=== PATIENT | male | born 1935 | race Hispanic/Latino ===

== ENCOUNTER 2017-09-28 13:42 | Inpatient (IN) | payer MEDICARE, OTHER ==
[~2017-09-28] VITALS: Ht 152.4 cm; Wt 65.8 kg
[2017-09-28] MEDS ORDERED: TAMSULOSIN HCL0.4 MG PO ×2 (14:07→14:16)
[2017-09-28] MEDS ORDERED: ISOSORBIDE MONO30 MG PO ×2 (14:07→14:16)
[2017-09-28] MEDS ORDERED: AMLODIPINE BESYL5 MG PO ×2 (14:07→14:16)
[2017-09-28] MEDS ORDERED: OMEPRAZOLE40 MG PO ×2 (14:07→14:16)
[2017-09-28] MEDS ORDERED: METOPROLOL SUCC50 MG PO ×2 (14:07→14:16)
[2017-09-28] MEDS ORDERED: ATORVASTATIN CA20 MG PO ×2 (14:07→14:16)
[2017-09-28] MEDS ORDERED: LASIX20 MG PO (14:07)
[2017-09-28] MEDS ORDERED: CEPHALEXIN500 MG PO (14:16)
[2017-09-28] MEDS ORDERED: FUROSEMIDE40 MG PO (14:16)
[2017-09-28 14:37] LABS: BILIRUBIN,URINE NEGATIVE (NEGATIVE); KETONES,URINE NEGATIVE (NEGATIVE); LEUKOCYTE ESTERASE ,URINE NEGATIVE (NEGATIVE); NITRITE,URINE NEGATIVE (NEGATIVE); PROTEIN,URINE DIPSTICK NEGATIVE (NEGATIVE); URINE UROBILINOGEN 0.2 mg/dL (0.2 - 1)
[2017-09-28 14:38] LABS: CLARITY,URINE CLEAR (CLEAR); COLOR,URINE YELLOW (YELLOW)
[2017-09-28 14:39] LABS: BASOPHILS % 0.5 % (0.0-1.0); EOSINOPHILS % 0.5 % (0.0-6.0); HEMATOCRIT 37.6 % (38.2-49.6); HEMOGLOBIN 11.7 g/dL (14.0-18.0); LYMPHOCYTES # (AUTO) 0.5 (1.0-3.2); LYMPHOCYTES % 8.5 % (18.0-39.1); MEAN CORPUSCULAR HEMOGLOBIN 27.5 pg (28-32); MEAN CORPUSCULAR HGB CONC 31.1 g/dL (31-35); MEAN CORPUSCULAR VOLUME 88.5 fL (81-99); MONOCYTES # (AUTO) 0.3 (0.2-0.8); MONOCYTES % 4.9 % (4.4-11.3); NEUTROPHILS # (AUTO) 5.2 (2.1-6.9); NEUTROPHILS % 84.8 % (38.7-80.0); PLATELET COUNT 148 x10e3/uL (140-360); RED BLOOD COUNT 4.25 x10e6/uL (4.3-5.7); RED CELL DISTRIBUTION WIDTH 17.6 % (11.7-14.4)
[2017-09-28 14:50] LABS: EPITHELIAL CELLS,URINE RARE /LPF
[2017-09-28 14:53] LABS: ALBUMIN 2.8 g/dL (3.5-5.0); ALBUMIN/GLOBULIN RATIO 0.7 (0.8-2.0); ANION GAP 13.5 mmol/L (8-16); CALCIUM 8.9 mg/dL (8.4-10.2); CREATININE, SERUM 2.46 mg/dL (0.72-1.25); MAGNESIUM 2.1 MG/DL (1.3-2.1); PHOSPHORUS 4.1 MG/DL (2.3-4.7); POTASSIUM 4.5 mmol/L (3.5-5.1)
[2017-09-28] MEDS ORDERED: SODIUM CHLORIDE 0.9% 1000ML 1,000 ML IV ONE (15:15)
--- NOTE | 2017-09-28 15:24 | Diagnostic Imaging Report ---
Examination: CT BRAIN WITHOUT CONTRAST History:New onset seizures. Comparison studies:None Technique: Axial images were obtained from the skull base to the vertex. Coronal and sagittal images reconstructed from the axial data. Intravenous contrast: None Findings: Scalp: No abnormalities. Bones: No fractures, blastic or lytic lesions. Brain sulci: Appropriate for age. Ventricles: Normal in size and configuration. No hydrocephalus. Extra-axial space: No abnormalities. Parenchyma: There are subtle patchy areas of hypoattenuation in the periventricular and subcortical white matter, nonspecific. Chronic lacunar infarcts of the right putamen and right striatocapsular region. No masses, hemorrhage, or acute cortical based vascular insults. Sellar/suprasellar region: No abnormalities. Craniocervical junction: Patent foramen magnum. No Chiari one malformation. Incidental findings: Atherosclerotic calcification of the cavernous and supraclinoid internal carotid and V4 segments of the bilateral vertebral arteries. Impression: 1. No acute intracranial abnormalities. 2. Mild chronic microvascular ischemic change. 3. Chronic lacunar infarcts, as above. Signed by: Dr. Lana Chamberlain M.D. on 09/28/2017 3:20 PM
[2017-09-28 15:57] LABS: THYROID STIMULATING HORMONE 103.88 uIU/mL (0.350-4.940)
[2017-09-28] MEDS ORDERED: SODIUM CHLORIDE FLUSH 10 ML SYR INJ PRN (17:00)
[2017-09-28] MEDS ORDERED: ONDANSETRON HCL INJ 2 MG/ML VIAL IV PRN (17:00)
[2017-09-28] MEDS ORDERED: LEVOTHYROXINE SODIUM 100 MCG/VIAL IV ONE (17:15)
[2017-09-28] MEDS: CEFTRIAXONE SOD 1 GM VIAL IV SCH (18:10)
[2017-09-28] MEDS ORDERED: DEXTROSE 5%/0.45% SOD CHL 1,000 ML IV ONE (20:15)
[2017-09-29] VITALS (15 sets, daily range): BP systolic 74–143; BP diastolic 45–76
[2017-09-29] MEDS ORDERED: DEXTROSE 5%/0.45% SOD CHL 1,000 ML IV ONE (05:12)
[2017-09-29 05:15] LABS: BASOPHILS % 0.4 % (0.0-1.0); EOSINOPHILS % 0.4 % (0.0-6.0); HEMATOCRIT 32.9 % (38.2-49.6); HEMOGLOBIN 10.4 g/dL (14.0-18.0); LYMPHOCYTES # (AUTO) 0.6 (1.0-3.2); LYMPHOCYTES % 11.7 % (18.0-39.1); MEAN CORPUSCULAR HEMOGLOBIN 27.5 pg (28-32); MEAN CORPUSCULAR HGB CONC 31.6 g/dL (31-35); MONOCYTES # (AUTO) 0.4 (0.2-0.8); MONOCYTES % 8.4 % (4.4-11.3); NEUTROPHILS # (AUTO) 3.8 (2.1-6.9); NEUTROPHILS % 78.3 % (38.7-80.0); PLATELET COUNT 137 x10e3/uL (140-360); RED BLOOD COUNT 3.78 x10e6/uL (4.3-5.7); RED CELL DISTRIBUTION WIDTH 17.6 % (11.7-14.4)
[2017-09-29] MEDS: DEXTROSE 5%/0.45% SOD CHL 1,000 ML IV SCH ×2 (05:15→15:58)
[2017-09-29 05:39] LABS: ALANINE AMINOTRANSFERASE 48 IU/L (0-55); ALBUMIN 2.3 g/dL (3.5-5.0); ALBUMIN/GLOBULIN RATIO 0.7 (0.8-2.0); ALKALINE PHOSPHATASE 94 IU/L (40-150); ANION GAP 10.9 mmol/L (8-16); BLOOD UREA NITROGEN 41 mg/dL (7-26); BUN/CREATININE RATIO 18 (6-25); CALCIUM 8.2 mg/dL (8.4-10.2); CARBON DIOXIDE 22 mmol/L (22-29); CHLORIDE 108 mmol/L (98-107); CREATININE, SERUM 2.23 mg/dL (0.72-1.25); EST GLOMERULAR FILTRATION RATE 28 ML/MIN (60-); GLUCOSE 63 mg/dL (74-118); POTASSIUM 3.9 mmol/L (3.5-5.1); SODIUM 137 mmol/L (136-145)
[2017-09-29] MEDS: CEFTRIAXONE SOD 1 GM VIAL IV SCH ×2 (06:19→18:01)
--- NOTE | 2017-09-29 07:13 | Diagnostic Imaging Report ---
EXAMINATION: CHEST SINGLE (PORTABLE) INDICATION: Sepsis COMPARISON: None FINDINGS: TUBES and LINES: None. LUNGS: Lungs are not well inflated. There are bibasilar atelectasis. There is mild prominence of the central pulmonary vasculature, consistent with pulmonary venous congestion. PLEURA: No pleural effusion or pneumothorax. HEART AND MEDIASTINUM: Cardiac size is mildly enlarged. BONES AND SOFT TISSUES: No acute osseous lesion. Soft tissues are unremarkable. UPPER ABDOMEN: No free air under the diaphragm. IMPRESSION: No acute thoracic abnormality. Signed by: Dr. Terry Mullen M.D. on 09/29/2017 7:10 AM
[2017-09-29] MEDS ORDERED: LEVOTHYROXINE SODIUM 100 MCG/VIAL IV NR (10:15)
[2017-09-29] MEDS: LORAZEPAM INJ 2 MG/ML VIAL IV PRN (13:51)
[2017-09-29] MEDS ORDERED: SODIUM CHLORIDE 0.9% 500ML 500 ML IV ONE (14:45)
[2017-09-29] MEDS ORDERED: ALBUMIN HUMAN 12.5GM / 50ML IV ONE (14:45)
--- NOTE | 2017-09-29 16:24 | Consultation ---
DATE OF CONSULTATION: September 29, 2017 ENDOCRINE CONSULTATION PATIENT OF: Dr. Anabella López. Thank you much for referring this patient. Most of the history is available from the chart and from the nursing station. HISTORY OF PRESENT ILLNESS: This is an 82-year-old gentleman who is referred to me for evaluation of hypothyroidism. We do not have any history whether patient is a known hypothyroid in the past; however, in the emergency room after the patient was checked up, his TSH was found to be 103 which is significantly elevated. His prolactin was also slightly high at 19.4. Patient was brought to the emergency room because of the seizures and since that time, the patient has been given some Ativan and he has altered mental status now. No history of strokes in the past according to the information on the chart. PHYSICAL EXAMINATION GENERAL: Today, the patient is responding to the painful stimulus. VITAL SIGNS: His heart rate is around 70, blood pressure is 100/60 mmHg. HEENT: Essentially unremarkable. Clinically, patient looks hypothyroid. CHEST: Bilateral vesicular breathing with mild bronchospasm. CARDIAC: Both first and second heart sounds. There is no third or fourth heart sound. Ejection systolic murmur, grade 2/6. EXTREMITIES: Patient has mild pedal edema. LAB EVALUATION: As already mentioned, BUN and creatinine is 41 and 2.23. Hemoglobin is 10.4 and hematocrit is 32.9. TSH is 103. CLINICAL IMPRESSION 1. Seizure disorder. 2. Severe hypothyroidism. 3. Chronic renal insufficiency. PLAN: The plan at this time is to continue the IV Synthroid till patient start p.o. medications. Then, we can change him to the p.o. Synthroid. We will also repeat the prolactin and also do a testosterone level. Thanks for referring this patient. I will be following this patient with you. Job#: [id number] YANN
[2017-09-29] MEDS ORDERED: HYDROCORTISONE SOD SUCCINATE 100 MG VIAL IV ONE (17:45)
[2017-09-30] VITALS (86 sets, daily range): BP systolic 87–155; BP diastolic 44–126
[2017-09-30] MEDS: DEXTROSE 5%/0.45% SOD CHL 1,000 ML IV SCH ×4 (01:54→21:50)
[2017-09-30] MEDS: CEFTRIAXONE SOD 1 GM VIAL IV SCH ×2 (05:05→18:00)
[2017-09-30 06:07] LABS: BASOPHILS % 0.2 % (0.0-1.0); HEMATOCRIT 31.1 % (38.2-49.6); HEMOGLOBIN 9.6 g/dL (14.0-18.0); LYMPHOCYTES # (AUTO) 0.5 (1.0-3.2); LYMPHOCYTES % 8.9 % (18.0-39.1); MEAN CORPUSCULAR HEMOGLOBIN 27.6 pg (28-32); MEAN CORPUSCULAR HGB CONC 30.9 g/dL (31-35); MEAN CORPUSCULAR VOLUME 89.4 fL (81-99); MONOCYTES # (AUTO) 0.1 (0.2-0.8); MONOCYTES % 2.4 % (4.4-11.3); NEUTROPHILS # (AUTO) 4.7 (2.1-6.9); NEUTROPHILS % 87.2 % (38.7-80.0); PLATELET COUNT 141 x10e3/uL (140-360); RED BLOOD COUNT 3.48 x10e6/uL (4.3-5.7); RED CELL DISTRIBUTION WIDTH 17.7 % (11.7-14.4)
[2017-09-30 06:23] LABS: ANION GAP 13.3 mmol/L (8-16); CREATININE, SERUM 2.24 mg/dL (0.72-1.25); POTASSIUM 4.3 mmol/L (3.5-5.1)
[2017-09-30 06:56] LABS: FREE THYROXINE INDEX 0.9723 (1.4-3.8); THYROID STIMULATING HORMONE 72.925 uIU/mL (0.350-4.940)
[2017-09-30] MEDS ORDERED: LEVOTHYROXINE SODIUM 100 MCG/VIAL IV ONE (23:45)
[2017-10-01] VITALS (44 sets, daily range): BP systolic 104–161; BP diastolic 50–120
[2017-10-01] MEDS ORDERED: DEXTROSE 50% SYRINGE 50 ML IV PRN (00:15)
[2017-10-01 02:22] LABS: BASOPHILS % 0.4 % (0.0-1.0); EOSINOPHILS # (AUTO) 0.1 (0.0-0.4); EOSINOPHILS % 1.4 % (0.0-6.0); HEMATOCRIT 30.5 % (38.2-49.6); HEMOGLOBIN 9.1 g/dL (14.0-18.0); LYMPHOCYTES # (AUTO) 0.9 (1.0-3.2); LYMPHOCYTES % 18.4 % (18.0-39.1); MEAN CORPUSCULAR HEMOGLOBIN 27.7 pg (28-32); MEAN CORPUSCULAR HGB CONC 29.8 g/dL (31-35); MEAN CORPUSCULAR VOLUME 92.7 fL (81-99); MONOCYTES # (AUTO) 0.6 (0.2-0.8); MONOCYTES % 11.3 % (4.4-11.3); NEUTROPHILS # (AUTO) 3.3 (2.1-6.9); NEUTROPHILS % 67.3 % (38.7-80.0); PLATELET COUNT 109 x10e3/uL (140-360); RED BLOOD COUNT 3.29 x10e6/uL (4.3-5.7); RED CELL DISTRIBUTION WIDTH 17.8 % (11.7-14.4)
[2017-10-01 02:32] LABS: INR 0.9; PROTHROMBIN TIME 12.6 seconds (11.9-14.5)
[2017-10-01 02:33] LABS: PARTIAL THROMBOPLASTIN TIME 38.1 seconds (23.8-35.5)
[2017-10-01 02:40] LABS: ALANINE AMINOTRANSFERASE 49 IU/L (0-55); ALBUMIN 2.2 g/dL (3.5-5.0); ALBUMIN/GLOBULIN RATIO 0.8 (0.8-2.0); ALKALINE PHOSPHATASE 77 IU/L (40-150); ANION GAP 11.2 mmol/L (8-16); BLOOD UREA NITROGEN 31 mg/dL (7-26); BUN/CREATININE RATIO 14 (6-25); CARBON DIOXIDE 22 mmol/L (22-29); CHLORIDE 116 mmol/L (98-107); CREATINE KINASE 113 IU/L (30-200); EST GLOMERULAR FILTRATION RATE 29 ML/MIN (60-); GLUCOSE 83 mg/dL (74-118); MAGNESIUM 1.6 MG/DL (1.3-2.1); POTASSIUM 4.2 mmol/L (3.5-5.1); SODIUM 145 mmol/L (136-145)
--- NOTE | 2017-10-01 03:04 | Diagnostic Imaging Report ---
EXAM: CT Abdomen and Pelvis WITHOUT contrast INDICATION: Distended abdomen COMPARISON: None. TECHNIQUE: Abdomen and pelvis were scanned utilizing a multidetector helical scanner from the lung base to the pubic symphysis without administration of IV contrast. Absence of intravenous contrast decreases sensitivity for detection of focal lesions and vascular pathology. Coronal and sagittal reformations were obtained. Routine protocol was performed. IV CONTRAST: None. ORAL CONTRAST: None RADIATION DOSE: Total DLP: 538.74 mGy*cm Estimated effective dose: (DLP x 0.015 x size factor) mSv COMPLICATIONS: None FINDINGS: LINES and TUBES: None. LOWER THORAX: There is bibasilar atelectasis. Bilateral pleural effusions left greater than right. Sliding hiatal hernia. HEPATOBILIARY: No focal hepatic lesions. No biliary ductal dilation. GALLBLADDER: No radio-opaque stones or sludge. No wall thickening. SPLEEN: No splenomegaly. PANCREAS: No focal masses or ductal dilatation. ADRENALS: No adrenal nodules KIDNEYS/URETERS: Atrophic right kidney. No hydronephrosis. 2.5 cm left renal simple cyst in the upper pole . Punctate calcification in the left renal parenchyma interpolar region compatible with scarring GI TRACT: No abnormal distention, wall thickening, or evidence of bowel obstruction. There are diverticula within the colon without evidence of diverticulitis. Appendix is normal. PELVIC ORGANS/BLADDER: Dumont catheter decompresses the urinary bladder. Prostatomegaly present. LYMPH NODES: No lymphadenopathy. VESSELS: There is severe atherosclerotic disease in the aorta and major arterial branches. PERITONEUM / RETROPERITONEUM: No free air or fluid. BONES: There are degenerative changes in the lumbar spine. SOFT TISSUES: Unremarkable. IMPRESSION: 1. No evidence of acute intra-abdominal or pelvic abnormality. 2. Bibasilar atelectasis and bilateral pleural effusions. 3. Findings compatible with chronic medical renal disease and cystic changes. 4. Diverticulosis without evidence of diverticulitis. 5. Prostatomegaly. Signed by: Dr. Terry Mullen M.D. on 10/01/2017 3:01 AM
[2017-10-01] MEDS ORDERED: ATROPINE SULFATE 0.1 MG/ML 10ML SYR ONE (03:35)
[2017-10-01] MEDS ORDERED: ATROPINE SULFATE INJ 0.4 MG/ML VIAL IV ONE (03:45)
[2017-10-01] MEDS: CEFTRIAXONE SOD 1 GM VIAL IV SCH ×2 (05:45→18:29)
[2017-10-01] MEDS: DEXTROSE 5%/0.45% SOD CHL 1,000 ML IV SCH ×2 (05:45→18:29)
[2017-10-01] MEDS ORDERED: LEVOTHYROXINE SODIUM 125 MCG TAB PO SCH (06:00)
[2017-10-01 06:24] LABS: BASOPHILS % 0.4 % (0.0-1.0); EOSINOPHILS # (AUTO) 0.1 (0.0-0.4); EOSINOPHILS % 1.1 % (0.0-6.0); HEMOGLOBIN 10.2 g/dL (14.0-18.0); LYMPHOCYTES # (AUTO) 0.9 (1.0-3.2); LYMPHOCYTES % 18.4 % (18.0-39.1); MEAN CORPUSCULAR HGB CONC 30.9 g/dL (31-35); MEAN CORPUSCULAR VOLUME 90.7 fL (81-99); MONOCYTES # (AUTO) 0.4 (0.2-0.8); MONOCYTES % 8.9 % (4.4-11.3); NEUTROPHILS # (AUTO) 3.2 (2.1-6.9); NEUTROPHILS % 69.5 % (38.7-80.0); PLATELET COUNT 129 x10e3/uL (140-360); RED BLOOD COUNT 3.64 x10e6/uL (4.3-5.7); RED CELL DISTRIBUTION WIDTH 17.7 % (11.7-14.4)
[2017-10-01 06:45] LABS: ANION GAP 11.3 mmol/L (8-16); CALCIUM 8.3 mg/dL (8.4-10.2); CREATININE, SERUM 2.03 mg/dL (0.72-1.25); POTASSIUM 4.3 mmol/L (3.5-5.1)
--- NOTE | 2017-10-01 10:21 | Diagnostic Imaging Report ---
EXAMINATION: MRI of the brain without contrast. HISTORY: Confusion COMPARISON: Head CT on 09/28/2017 TECHNIQUE: Sagittal T2; axial DWI, T2, FLAIR, T1-IR, T2 gradient echo; coronal FLAIR. IMAGE QUALITY: Motion artifact limits the evaluation. FINDINGS: Parenchyma: 1. A few scattered T2 FLAIR hyperintense foci in the supratentorial white matter are nonspecific and may reflect mild chronic small vessel ischemic changes. 2. Chronic lacunar infarcts in the right striatocapsular region (caudate and putamen). 3. No mass, hemorrhage, acute or chronic infarcts. Skull: Unremarkable. Vessels: Expected flow voids present in the major arteries and dural sinuses. Extra-axial spaces: No abnormal signal intensity or mass effect. Brain volume: Within normal limits for age. Ventricles: No hydrocephalus or displacement. Foramen magnum: Unremarkable. Sella: Unremarkable. Paranasal / mastoid sinuses: Mild mucosal inflammatory thickening of the ethmoidal and sphenoid sinuses. IMPRESSION: Unchanged mild chronic microvascular ischemic changes and chronic lacunar infarcts in the right striatocapsular region. Signed by: Dr. Liseth Perkins M.D. on 10/01/2017 10:18 AM
[2017-10-01] MEDS ORDERED: LEVOTHYROXINE SODIUM 100 MCG/VIAL IV SCH (10:30)
--- NOTE | 2017-10-01 12:06 | Consultation ---
DATE OF CONSULTATION: October 01, 2017 CARDIAC CONSULTATION REASON FOR CONSULTATION: Bradyarrhythmias and multiple medical health problems. HISTORY: This is an 82-year-old gentleman who is known with multiple medical problems, namely hypertension, congestive heart failure, peripheral arterial and vascular disease, chronic kidney disease. The patient's activities are quite limited. He stays at home. He has family support. He had prior admission to [facility] with septicemia, sepsis and urinary tract infection. He is followed by urology service. There is history of forgetfulness and dementia. Patient is maintained on medication at home. Patient was admitted to this institution on the September with hypothermia and failure to thrive. The patient apparently, as per family, went to his room. Subsequently was found in his room. They noted at least 3 grand mal seizures. When he came to the emergency room, he was extremely hypothermic. Admitted for further management. Patient was found also to have extreme severe hypothyroidism, TSH at 103. Patient was managed with IV fluids. Also, his BUN and creatinine were markedly elevated. Patient was covered with antibiotics. He was given Synthroid 1 dose intravenously. It was noted his abdomen was quite distended. He had a CT abdomen which showed no acute abdomen. Patient is in the intensive care unit. He is quite confused, barely responsive. It was noted at night the patient had bradycardia in the high 30s and low 40s. Cardiac consultation is obtained. Patient seems to respond nicely to atropine given intravenously. Patient currently is confused, sleepy, lethargic, obtunded. Not much information can be taken from him. All information is taken from records. REVIEW OF SYSTEMS: As per above. Unable to get full review of systems because of the patient's general condition. SOCIAL HISTORY: Patient used to be a heavy smoker. He is not an alcohol drinker. He lives with his family. ALLERGIES: NONE LISTED ON HIS PROFILE. MEDICATIONS: Home medications are: 1. Norvasc 5 mg a day. 2. Ismo 30 mg a day. 3. Toprol-XL 50 mg a day. 4. Lasix 20 mg a day. 5. Lipitor 20 mg a day. 6. Protonix 40 mg a day. 7. Flomax 0.4 mg a day. Following admission, the patient is on ceftriaxone and IV fluids. PAST MEDICAL HISTORY 1. Congestive heart failure. 2. Peripheral arterial and vascular disease. 3. Chronic renal insufficiency. 4. Hypertension. 5. Repeated urinary tract infections. 6. Dyslipidemia. 7. Bilateral cataract surgery. 8. Some form of obstructive urinary disease. Followed by Dr. Valdes. FAMILY HISTORY: Unable to get. PHYSICAL EXAMINATION GENERAL: Old gentleman, acutely and chronically ill, lethargic, obtunded. Height of 5 feet, weight of 150 pounds. VITALS: Blood pressure currently at 140/80. Heart rate of 70. Respiratory rate of 20. Afebrile. HEENT: Pupils are sluggish. NECK: No elevation of jugular venous pulsation. CHEST: Decreased air entry in bases. HEART: Ejection systolic murmur, left sternal border. PMI at 5th left intercostal space. No heave. No pericardial rub. ABDOMEN: Distended but no rebound. Very sluggish bowel sounds. EXTREMITIES: No peripheral edema. NEUROLOGIC: Patient is obtunded. LABORATORY DATA: Today, BUN and creatinine are lower at 29 and 2.03. Bicarb 22. White blood cell count of 4.6, hemoglobin 10.2, hematocrit 33%, platelet count of 129,000. TSH on admission 103. TSH of 72.9. IMAGING: Chest x-ray and CT scan results as per chart. IMPRESSION AND PLAN 1. Admission with seizure and extreme hypothermia, possible sepsis. 2. Documented severe hypothyroidism. 3. Chronic renal insufficiency with history of some obstructive uropathy. Followed by renal and urology. 4. History of congestive heart failure documented in the past. 5. Prostate problem. 6. Severe hypothyroidism. 7. Possible sepsis. 8. Very severe advanced coronary artery disease and peripheral arterial and vascular disease. Cardiac-scales my recommendations are as follows: 1. To give Synthroid intravenously because of the distended abdomen and questionable absorption. 2. Definitely to hold all his home medications for the time being. 3. We will try to see the family to get more data. 4. Will check an echocardiogram. 5. Will keep on telemetry. Prognosis is guarded because of the patient's comorbid conditions and his presentation. Will discuss also probably code status with the family. The main issue now is to correct hypothermia, which is done, and hypothyroidism management, checking on blood cultures and other data and trying to review patient's information when available. Job#: [id number]
--- NOTE | 2017-10-01 14:50 | Consultation ---
DATE OF CONSULTATION: October 01, 2017 REASON FOR CONSULTATION: Thickened nails. HISTORY OF PRESENT ILLNESS: This is an 82-year-old male with multiple medical problems, who was admitted through the emergency room for hypothermia and multiple seizures. He has a significant past medical history including hypertension, congestive heart failure, peripheral vascular disease, chronic kidney disease and history of recent urinary tract infection with sepsis. The podiatry service is being consulted for thickened toenails to his feet. The patient was examined at bedside with the present. The majority of the history was taken from the patient's . The patient's relates that the patient's nails have been thick for approximately 6 months, and the patient is unable to trim them himself. He has no history of wounds or ulcerations to his feet. No other pedal complaints. PAST MEDICAL HISTORY: Hypertension, congestive heart failure, peripheral vascular disease, chronic kidney disease, hypothermia, hypothyroidism. MEDICATIONS: Per the chart. ALLERGIES: NO KNOWN DRUG ALLERGIES. SOCIAL HISTORY: The patient has a history of smoking. Denies alcohol or any illicit drug use per the . REVIEW OF SYSTEMS: Unable to be determined at this time due to the patient's current condition. PHYSICAL EXAMINATION GENERAL: The patient is not alert or oriented at this time. VITAL SIGNS: Today, temperature is 98.6, heart rate 60, blood pressure 147/81, pulse ox 100% nasal cannula. PROBLEM-FOCUSED LOWER EXTREMITY PHYSICAL EXAMINATION VASCULAR: Dorsalis pedis and posterior tibial pulses are nonpalpable. Capillary refill time is delayed at 4 to 5 seconds to all digits. Negative erythema and edema is noted. The feet are cold to the touch. NEUROLOGIC: Unable to be determined at this time due to the patient's current status. MUSCULOSKELETAL: No gross deformities are noted. Unable to elicit pain on palpation. Again, exam is limited due to the patient's current condition. DERMATOLOGICAL: Nails are thickened and dystrophic with some ungual debris. No open lesions, ulcerations or macerations are noted. ASSESSMENT: Onychomycosis without ingrown nail or any local acute signs of infection. PLAN: The patient was seen and evaluated. Discussed condition and treatment options with the patient's in detail. The nails at the moment are not elongated, so they were unable to be trimmed at bedside. They were specifically thickened, which need to be debrided with a Dremel tool. My recommendation is to do this on an outpatient basis as the Dremel tool will allow fungal debris into the air and is not sanitary for a hospital setting. There are no local acute signs of infection to the patient's feet. The patient was given instructions to call the outpatient office upon discharge for the nails to be adequately debrided. The podiatry service will be signing off on this patient. Please reconsult if necessary. Job#: [id number]
--- NOTE | 2017-10-01 16:38 | Consultation ---
DATE OF CONSULTATION: September 30, 2017 at 4 p.m. LOCATION: Intensive care unit. REASON FOR CONSULTATION: Possible seizures. This is an 82-year-old male with multiple medical problems who was admitted with some episodes of jerking of the arms and legs. According to the , there was no response. They brought him to the emergency room, and he was hypotensive with bradycardia and he was also found to be hypothermic, and so he was admitted to ICU for further evaluation and management. The patient, according to his , never had an episode of seizure in his life. There was no tongue biting. There was no sphincter dysfunction. PAST MEDICAL HISTORY: Hypertension, congestive heart failure, peripheral vascular disease, chronic renal insufficiency, repeated urinary tract infections, dyslipidemia. HOME MEDICATIONS: Lasix, metoprolol, Norvasc, Protonix and Flomax. FAMILY HISTORY: Noncontributory. PHYSICAL EXAMINATION VITAL SIGNS: Blood pressure 113/53, pulse 78, temperature 97.7. GENERAL: The patient is awake. He is oriented x3. He knows that he is at [facility]. Speech is clear. He is edentulous. Cranial nerves: Pupils are both equal and reactive. Extraocular movements were full. Visual chen normal. No facial weakness. Tongue protrudes midline. Motor power: The patient is able to elevate arms and legs against gravity without any difficulty. Does not show any evidence of proximal or distal muscle weakness in both upper or lower extremities. Deep tendon reflexes: Triceps, biceps and radials 1+. Knee jerk and ankle jerk is absent bilaterally. Plantar stimulation is down bilaterally. HEAD: Normocephalic. NECK: Supple. Carotid pulsations were present bilaterally. There were no bruits. LABORATORY DATA: TSH was , extremely elevated. T4 was low at 0.9723. Sodium 142, potassium 4.3, BUN 31, creatinine 2.2. CBC shows a white count of 5400 with hemoglobin 9.3, hematocrit 31.1, platelets 141,000. CT scan of the brain showed no acute pathology. There is some chronic small vessel disease. I had a long discussion with the . He has had some episode of confusion, but mostly he has some episodes of paranoia. He feels that he is going to . At one time he had a nervous breakdown. He has not seen a psychiatrist. IMPRESSION 1. Some episode of jerking with no tongue biting or sphincter dysfunction, unspecified. 2. Hypertension. 3. Intermittent hypothermic state. 4. Severe hypothyroidism. 5. Chronic kidney insufficiency. RECOMMENDATIONS: MRI of the brain without contrast. EEG. Psychiatric consultation. We have discussed with his . We will follow closely. Job#: [id number]
[2017-10-01] MEDS ORDERED: PANTOPRAZOLE SOD 40 MG TABEC PO SCH (17:00)
[2017-10-02] VITALS (26 sets, daily range): BP systolic 53–171; BP diastolic 31–98
[2017-10-02] MEDS: DEXTROSE 5%/0.45% SOD CHL 1,000 ML IV SCH ×2 (02:00→22:32)
[2017-10-02] MEDS: LEVOTHYROXINE SODIUM 125 MCG TAB PO SCH (05:30)
[2017-10-02] MEDS: CEFTRIAXONE SOD 1 GM VIAL IV SCH ×2 (05:30→18:01)
[2017-10-02 05:35] LABS: BASOPHILS % 0.6 % (0.0-1.0); EOSINOPHILS # (AUTO) 0.1 (0.0-0.4); EOSINOPHILS % 1.3 % (0.0-6.0); HEMATOCRIT 35.9 % (38.2-49.6); HEMOGLOBIN 10.7 g/dL (14.0-18.0); LYMPHOCYTES # (AUTO) 0.7 (1.0-3.2); LYMPHOCYTES % 12.6 % (18.0-39.1); MEAN CORPUSCULAR HEMOGLOBIN 27.6 pg (28-32); MEAN CORPUSCULAR HGB CONC 29.8 g/dL (31-35); MEAN CORPUSCULAR VOLUME 92.8 fL (81-99); MONOCYTES # (AUTO) 0.4 (0.2-0.8); MONOCYTES % 8.1 % (4.4-11.3); NEUTROPHILS # (AUTO) 4.1 (2.1-6.9); NEUTROPHILS % 76.3 % (38.7-80.0); PLATELET COUNT 124 x10e3/uL (140-360); RED BLOOD COUNT 3.87 x10e6/uL (4.3-5.7); RED CELL DISTRIBUTION WIDTH 17.4 % (11.7-14.4)
[2017-10-02 05:57] LABS: ALANINE AMINOTRANSFERASE 56 IU/L (0-55); ALBUMIN 2.6 g/dL (3.5-5.0); ALBUMIN/GLOBULIN RATIO 0.9 (0.8-2.0); ALKALINE PHOSPHATASE 95 IU/L (40-150); ANION GAP 13.2 mmol/L (8-16); BLOOD UREA NITROGEN 28 mg/dL (7-26); BUN/CREATININE RATIO 15 (6-25); CALCIUM 8.4 mg/dL (8.4-10.2); CARBON DIOXIDE 21 mmol/L (22-29); CHLORIDE 112 mmol/L (98-107); CREATININE, SERUM 1.87 mg/dL (0.72-1.25); EST GLOMERULAR FILTRATION RATE 35 ML/MIN (60-); GLUCOSE 71 mg/dL (74-118); POTASSIUM 4.2 mmol/L (3.5-5.1); SODIUM 142 mmol/L (136-145)
[2017-10-02] MEDS ORDERED: LEVOTHYROXINE SODIUM 50 MCG TAB PO SCH ×2 (06:00)
[2017-10-02 06:20] LABS: FREE THYROXINE INDEX 1.8107 (1.4-3.8); THYROID STIMULATING HORMONE 58.881 uIU/mL (0.350-4.940)
[2017-10-02] MEDS: PANTOPRAZOLE SOD 40 MG TABEC PO SCH (08:28)
[2017-10-02] MEDS: TAMSULOSIN HCL 0.4 MG CAP PO SCH (08:28)
[2017-10-02] MEDS ORDERED: HALOPERIDOL LACTATE 5 MG/ML VIAL IM PRN ×2 (13:15)
[2017-10-02] MEDS ORDERED: RISPERIDONE 0.5 MG TAB PO PRN (13:15)
[2017-10-02] MEDS: SERTRALINE HCL 50 MG TAB PO SCH ×3 (13:15→14:27)
--- NOTE | 2017-10-02 16:45 | Consultation ---
DATE OF CONSULTATION: PSYCHIATRIC INITIAL CONSULT REASON FOR CONSULTATION: For treatment and evaluation of patient's depression and confusion. HISTORY OF PRESENTING ILLNESS: Patient is an 82-year-old male who is admitted to [facility] in ICU because of hypothermia and cold exposure with seizures. Psychiatric consult is called to evaluate the patient's mood and confusion. Upon evaluation today, patient is found to be somewhat drowsy but arousable. He is very confused. He is talking to himself. He is seeing things that are not there. He is not agitated at this time. He believes that he is not in the hospital and is somewhere else in [place]. He is not able to answer further questions for this assessment. As per the nursing staff, patient was much more alert and oriented yesterday. He was able to carry on reasonable conversation. It was noted that he was depressed at this time. Today she reported that patient is more confused but not agitated. He has been having visual hallucinations. PAST PSYCHIATRIC HISTORY: Reportedly patient does not have any history of psychiatric illness. Details are not available. FAMILY HISTORY: Unknown. SOCIAL HISTORY: As per the nurse, patient lives with his family. MENTAL STATUS EXAMINATION: Patient is an elderly male who is currently lying on his bed. He has some psychomotor retardation. He is alert, awake, oriented to self only. He is confused. He is not able to participate for a complete mental status examination at this time, although it appears that patient is having visual hallucinations. CURRENT LABS: WBC 5.3, hemoglobin 10.7, hematocrit 35.9, platelets 124. Sodium 142, potassium 4.2, chloride 112, carbon dioxide 21, BUN 28, creatinine 1.8. AST 73, ALT 56, alkaline phosphatase 95. TSH 58.8. CURRENT MEDICATIONS 1. Protonix. 2. Levothyroxine. 3. Rocephin. 4. Ativan 2 mg IV q.4 h. p.r.n. IMPRESSION AXIS I 1. Unspecified psychosis. 2. Rule out dementia. 3. Adjustment disorder with mixed mood depression and anxiety. AXIS II: Deferred. AXIS III: As per medical history. AXIS IV: Moderate. AXIS V: Global Assessment of Functioning is 40. RECOMMENDATION: Based on this clinical assessment, patient appears to be more confused and delirious than depressed. Following are the recommendations for now. 1. Add Risperdal 0.5 mg p.o. q.6 h. p.r.n. for agitation. 2. Add Haldol 2 mg IM q.6 h. p.r.n. for agitation and psychosis. 3. Add Zoloft 25 mg p.o. daily. We will continue to follow this patient during his inpatient stay. Thank you very much for this consult. Job#: [id number] EV
[2017-10-02] MEDS: LORAZEPAM INJ 2 MG/ML VIAL IV PRN (22:00)
[2017-10-03] VITALS (7 sets, daily range): BP systolic 141–161; BP diastolic 67–77
[2017-10-03] MEDS: CEFTRIAXONE SOD 1 GM VIAL IV SCH ×2 (06:05→17:50)
[2017-10-03] MEDS: LEVOTHYROXINE SODIUM 125 MCG TAB PO SCH (06:05)
[2017-10-03 06:21] LABS: BASOPHILS % 0.5 % (0.0-1.0); EOSINOPHILS # (AUTO) 0.1 (0.0-0.4); EOSINOPHILS % 2.3 % (0.0-6.0); HEMATOCRIT 31.8 % (38.2-49.6); HEMOGLOBIN 9.7 g/dL (14.0-18.0); LYMPHOCYTES # (AUTO) 0.5 (1.0-3.2); LYMPHOCYTES % 11.8 % (18.0-39.1); MEAN CORPUSCULAR HEMOGLOBIN 27.8 pg (28-32); MEAN CORPUSCULAR HGB CONC 30.5 g/dL (31-35); MEAN CORPUSCULAR VOLUME 91.1 fL (81-99); MONOCYTES # (AUTO) 0.5 (0.2-0.8); MONOCYTES % 11.8 % (4.4-11.3); NEUTROPHILS # (AUTO) 2.8 (2.1-6.9); NEUTROPHILS % 72.1 % (38.7-80.0); PLATELET COUNT 112 x10e3/uL (140-360); RED BLOOD COUNT 3.49 x10e6/uL (4.3-5.7); RED CELL DISTRIBUTION WIDTH 17.3 % (11.7-14.4)
[2017-10-03 06:49] LABS: ALANINE AMINOTRANSFERASE 37 IU/L (0-55); ALBUMIN 2.3 g/dL (3.5-5.0); ALBUMIN/GLOBULIN RATIO 0.8 (0.8-2.0); ALKALINE PHOSPHATASE 87 IU/L (40-150); BLOOD UREA NITROGEN 21 mg/dL (7-26); BUN/CREATININE RATIO 13 (6-25); CALCIUM 8.5 mg/dL (8.4-10.2); CARBON DIOXIDE 27 mmol/L (22-29); CHLORIDE 110 mmol/L (98-107); CREATININE, SERUM 1.67 mg/dL (0.72-1.25); EST GLOMERULAR FILTRATION RATE 40 ML/MIN (60-); GLUCOSE 71 mg/dL (74-118); SODIUM 143 mmol/L (136-145)
--- NOTE | 2017-10-03 08:21 | Diagnostic Imaging Report ---
EXAMINATION: CHEST SINGLE (PORTABLE) INDICATION: \S\CHF \S\[id number] \S\0730 \S\Y COMPARISON: 09/29/2017 FINDINGS: AP view TUBES and LINES: None. LUNGS: Limited by rotation. Patient's chin obscures lung apices. Central peribronchovascular thickening/cuffing and mild interstitial edema. PLEURA: No pneumothorax. Possible small left pleural effusion. HEART AND MEDIASTINUM: Enlarged cardiac silhouette. Aorta is calcified and tortuous. BONES AND SOFT TISSUES: No acute osseous lesion. Soft tissues are unremarkable. UPPER ABDOMEN: No free air under the diaphragm. IMPRESSION: Central peribronchovascular thickening/cuffing and mild interstitial edema. Suspected small left pleural effusion. Signed by: Dr. Wiliam Alvarado MD on 10/03/2017 8:17 AM
[2017-10-03] MEDS: PANTOPRAZOLE SOD 40 MG TABEC PO SCH (09:00)
[2017-10-03] MEDS ORDERED: SERTRALINE HCL 50 MG TAB PO SCH (09:00)
[2017-10-03] MEDS: TAMSULOSIN HCL 0.4 MG CAP PO SCH (11:49)
[2017-10-03] MEDS: PANTOPRAZOLE SODIUM 40 MG SUSPDR.PKT PO SCH (16:21)
[2017-10-03] MEDS: SERTRALINE HCL 50 MG TAB PO SCH (18:01)
[2017-10-04] VITALS: BP 166/79
[2017-10-04 04:00] VITALS: BP 152/86
[2017-10-04] MEDS: LEVOTHYROXINE SODIUM 125 MCG TAB PO SCH (04:58)
[2017-10-04] MEDS: CEFTRIAXONE SOD 1 GM VIAL IV SCH ×2 (04:58→16:57)
[2017-10-04 06:40] LABS: BASOPHILS % 0.3 % (0.0-1.0); EOSINOPHILS # (AUTO) 0.1 (0.0-0.4); EOSINOPHILS % 1.4 % (0.0-6.0); HEMATOCRIT 33.3 % (38.2-49.6); HEMOGLOBIN 10.2 g/dL (14.0-18.0); LYMPHOCYTES # (AUTO) 0.6 (1.0-3.2); LYMPHOCYTES % 8.6 % (18.0-39.1); MEAN CORPUSCULAR HEMOGLOBIN 27.3 pg (28-32); MEAN CORPUSCULAR HGB CONC 30.6 g/dL (31-35); MEAN CORPUSCULAR VOLUME 89.3 fL (81-99); MONOCYTES # (AUTO) 0.7 (0.2-0.8); MONOCYTES % 10.7 % (4.4-11.3); NEUTROPHILS # (AUTO) 4.9 (2.1-6.9); NEUTROPHILS % 77.4 % (38.7-80.0); PLATELET COUNT 123 x10e3/uL (140-360); RED BLOOD COUNT 3.73 x10e6/uL (4.3-5.7); RED CELL DISTRIBUTION WIDTH 17.2 % (11.7-14.4)
[2017-10-04 07:10] LABS: ALBUMIN 2.4 g/dL (3.5-5.0); ALBUMIN/GLOBULIN RATIO 0.8 (0.8-2.0); ANION GAP 13.4 mmol/L (8-16); CALCIUM 8.9 mg/dL (8.4-10.2); CREATININE, SERUM 1.52 mg/dL (0.72-1.25); POTASSIUM 4.4 mmol/L (3.5-5.1)
[2017-10-04 08:30] VITALS: BP 176/82
[2017-10-04 08:35] LABS: THYROID STIMULATING HORMONE 55.36 uIU/mL (0.350-4.940)
[2017-10-04] MEDS: TAMSULOSIN HCL 0.4 MG CAP PO SCH (09:01)
[2017-10-04] MEDS: PANTOPRAZOLE SODIUM 40 MG SUSPDR.PKT PO SCH (09:01)
[2017-10-04] MEDS: SERTRALINE HCL 50 MG TAB PO SCH (09:01)
[2017-10-04] MEDS ORDERED: AMLODIPINE BESYLATE 5 MG TAB PO SCH (10:30)
[2017-10-04 11:22] VITALS: BP 176/82
[2017-10-04 12:50] VITALS: BP 170/80
[2017-10-04 16:02] VITALS: BP 130/62
--- NOTE | 2017-10-04 16:24 | Diagnostic Imaging Report ---
PROCEDURE:X-RAY MODIFIED BARIUM SWALLOW COMPARISON:None. INDICATIONS:Concern for aspiration. DISCUSSION:Fluoroscopic examination was performed in conjunction with speech pathology, during swallowing of a variety of thin and thick liquid consistencies. Fluoroscopy time: 1.2 min Dose: 11.83 mGy CONCLUSION:No penetration or aspiration. Please see the report from speech pathology for complete details. Dictated by: Wiliam Alvarado M.D. on 10/04/2017 at 16:33 Electronically approved by: Wiliam Alvarado M.D. on 10/04/2017 at 16:33
[2017-10-04] MEDS ORDERED: ATORVASTATIN 20 MG TAB PO SCH (21:00)
--- NOTE | 2017-10-05 08:43 | Progress Note ---
DATE: October 04, 2017 PSYCHIATRIC PROGRESS NOTE Patient is in the room. He is pleasant and cooperative. Patient is mildly confused, but answering questions. Appropriate at times. The is in the room, and states that the patient is having intermittent hallucinations, but is improving. Patient received p.r.n. IV on October 02, 2017, and did not get anything last night or the night before. He has not been combative. He is receiving his medication and no serious side effects reported. ASSESSMENT: Unspecified psychosis; rule out dementia. PLAN: Continue with Risperdal 0.5 mg p.o. q.6 h. p.r.n. Continue with Ativan 2 mg IV q.4 h. p.r.n. Continue with Haldol 1 mg IM q.6 h. p.r.n. Continue Zoloft 25 mg p.o. daily. Monitor for agitation. DICTATED BY JUAN MILLER Job#: [id number] RI
--- NOTE | 2017-11-18 22:56 | Discharge Summary ---
CHIEF COMPLAINT: Seizures. FINAL DIAGNOSES 1. Hypothyroid myxedema. 2. Pneumonia, resolved. 3. Sepsis/urinary tract infection. 4. Dementia. DISPOSITION: [facility]. HOSPITAL COURSE: An 82-year-old male with unknown past medical history, brought to the ER after having a generalized seizure. Apparently has no history of seizures. Underwent review and evaluation in the ER. In the ER, vital signs were showing a temperature of 90.6, BP 111/60, and pulse 48. Lab and x-rays were conducted in the ER. Some of the lab studies were revealing a TSH to be elevated at 103. Information was somewhat difficult to obtain from the patient and evaluating him due to the confusion that he was having, and continued monitoring and evaluation led to admission for evaluation of status post first-onset generalized seizure, hypothermia, profound hypothyroidism, questionable myxedema. Will begin IV Synthroid. Request a neurological consult. Obtain urine studies. With admission regarding issues of possible seizures, patient was being reviewed by Dr. Sprague. Following his workup and evaluation of the patient, reviewing x-rays, as well as lab studies, his impression, some episode of jerking with no tongue biting or sphincter dysfunction, unspecified hypertension, intermittent hypothermic state, severe hypothyroidism, chronic kidney insufficiency. Will be requesting an MRI of the brain without contrast as well as an EEG. Also undergoing cardiac follow due to EKG findings of bradyarrhythmias. following his evaluation of the patient. His impression was to admit the patient with seizure and extreme hypothermia, possible sepsis, documented severe hypothyroidism, chronic renal insufficiency with history of some obstructive uropathy, history of congestive heart failure documented in the past, prostate problem, severe hypothyroidism, possible sepsis, very severe advanced coronary artery disease and peripheral arterial vascular disease. Agree with the administration of IV Synthroid. Continue holding his home medications for now. Underwent podiatry follow due to issues of onychomycosis; and with his evaluation of the patient, his assessment was onychomycosis without ingrown nail or any of local acute signs of infection. Recommendation is to debride the nails with a Dremel tool. This can be done on outpatient basis. The issues with depression and confusion were addressed by Dr. Ramírez. 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 Recommending adding to his MARs risperidone 0.5 mg p.o. q.6 h. p.r.n. for agitation, Haldol 2 mg IM q.6 h. p.r.n. for agitation and psychosis, Zoloft 25 mg daily. Also seen by Dr. Linares, endocrinology, regarding his TSH findings. His impression was severe hypothyroidism, seizure disorder. Agree with IV Synthroid and then switched to p.o. Was being maintained in ER hold until bed can be cleared. He was on a cardiac diet. He was on IV fluids. Was given lorazepam for agitation, started on ceftriaxone 1 g IV q.12 h. Laboratory studies were showing stable electrolytes. Kidney functions: BUN 41, creatinine 2.23, and glucose 63. CBC stable. As mentioned, TSH 103.88. Patient was then upgraded to ICU from the ER. Cardiac diet. His followup kidney functions were now, BUN 31, creatinine 2.24, glucose 118. CBC stable. Was now being switched over to p.o. Synthroid. TSH was now 72. Patient continued in ICU care, was now on levothyroxine 125 mcg. Labs were continuing to be stable. Responding well to care. Patient was still having some issues with confusion as well as being weak. UTI studies were showing growth of Citrobacter. Patient was continuing on the Rocephin 1 g q.12 h. Continued on his cardiac diet. On October 03, 2017, it was noted nurses were feeling that the patient was aspirating. Was set up to undergo a speech evaluation for modified barium swallow. He was able to be downgraded to medical/surg floor where his care was continuing. Further monitoring of his medications were being carried out. Was now receiving some medications through Dr. Ramírez regarding his mental status. The patient will be requiring further monitoring and management and arrangements were being set up through assistance of case management for skilled placement. The patient was accepted to [facility] and was transferred there on October 04, 2017, in guarded condition. EKGs are showing sinus bradycardia with a first-degree AV block; septal infarct, age undetermined. Further EKGs are showing atrial fib with a slow ventricular response. Continued EKGs, sinus rhythm with bigeminal PACs with a first-degree AV block. Echocardiogram: Ejection fraction 40 to 45%. No evidence of pericardial effusion. As mentioned, patient was transferred to [facility] for continuation of care. I will continue to monitor his progress at that facility. He will continue on his current MARs, current diet. His code status is a DNR. Patient is noted to demonstrate bladder incontinence. Has a Dumont catheter. Patient does have a walker. I will be monitoring and managing the patient's care at that location, be evaluating his status routinely. Staff will be contacting me as needed. Dictated by: IGGY Carmona Job#: [id number]
--- NOTE | 2017-12-08 19:29 | Electroencephalogram ---
DATE OF STUDY: October 02, 2017 BACKGROUND DESCRIPTION: This recording is completely artifactual. There is myogenic kinesogenic activity noted which renders interpretation of this EEG impossible. Job#: [id number]
== END 2017-10-04 18:24 | DRG 871 ==
LOC: ER 13:42 → ERHOLD 17:12 → ICU 09-29 19:01 → MED/SURG 10-02 23:14
DX: A41.9 Sepsis, unspecified organism (principal); N17.0 Acute kidney failure with tubular necrosis; I50.23 Acute on chronic systolic (congestive) heart failure; I13.0 Hypertensive heart and chronic kidney disease with heart failure and stage 1 through stage 4 chronic kidney disease, or unspecified chronic kidney disease; J44.9 Chronic obstructive pulmonary disease, unspecified; G40.909 Epilepsy, unspecified, not intractable, without status epilepticus; I25.10 Atherosclerotic heart disease of native coronary artery without angina pectoris; F43.23 Adjustment disorder with mixed anxiety and depressed mood; E03.9 Hypothyroidism, unspecified; L60.0 Ingrowing nail; R62.7 Adult failure to thrive; Z66 Do not resuscitate; N40.0 Benign prostatic hyperplasia without lower urinary tract symptoms; N18.9 Chronic kidney disease, unspecified; B96.89 Other specified bacterial agents as the cause of diseases classified elsewhere; F17.210 Nicotine dependence, cigarettes, uncomplicated; I73.9 Peripheral vascular disease, unspecified; K59.00 Constipation, unspecified; D64.9 Anemia, unspecified; F01.50 Vascular dementia, unspecified severity, without behavioral disturbance, psychotic disturbance, mood disturbance, and anxiety
CPT/HCPCS: 36415; 70450; 70551; 71045; 74176; 74230; 80048; 80053; 81001; 82550; 82553; 82948; 83605; 83735; 84100; 84146; 84402; 84436; 84443; 84479; 84484; 85025; 85610; 85730; 86376; 86850; 86900; 87040; 87086; 87186; 93005; 93306; 95812; 96360; 99285; J0696; J1720; J2060; J2405; J7030; J7040; J7799

== ENCOUNTER → 2017-10-06 | Outpatient (CLI) | payer OTHER ==
[~2017-10-06] MED LIST: AMLODIPINE BESYL5 MG PO; ATORVASTATIN CA20 MG PO; CEPHALEXIN500 MG PO; FUROSEMIDE40 MG PO; ISOSORBIDE MONO30 MG PO; LASIX20 MG PO; METOPROLOL SUCC50 MG PO; OMEPRAZOLE40 MG PO; TAMSULOSIN HCL0.4 MG PO
[2017-10-06 14:41] LABS: ANION GAP 13.5 mmol/L (8-16); CALCIUM 9.4 mg/dL (8.4-10.2); CREATININE, SERUM 1.38 mg/dL (0.72-1.25); POTASSIUM 4.5 mmol/L (3.5-5.1)
[2017-10-06 14:44] LABS: BASOPHILS % 0.2 % (0.0-1.0); EOSINOPHILS # (AUTO) 0.1 (0.0-0.4); EOSINOPHILS % 2.3 % (0.0-6.0); HEMATOCRIT 32.7 % (38.2-49.6); HEMOGLOBIN 10.3 g/dL (14.0-18.0); LYMPHOCYTES # (AUTO) 0.4 (1.0-3.2); LYMPHOCYTES % 8.9 % (18.0-39.1); MEAN CORPUSCULAR HEMOGLOBIN 27.5 pg (28-32); MEAN CORPUSCULAR HGB CONC 31.5 g/dL (31-35); MEAN CORPUSCULAR VOLUME 87.4 fL (81-99); MONOCYTES # (AUTO) 0.5 (0.2-0.8); MONOCYTES % 9.9 % (4.4-11.3); NEUTROPHILS # (AUTO) 3.8 (2.1-6.9); NEUTROPHILS % 77.9 % (38.7-80.0); PLATELET COUNT 128 x10e3/uL (140-360); RED BLOOD COUNT 3.74 x10e6/uL (4.3-5.7); RED CELL DISTRIBUTION WIDTH 16.9 % (11.7-14.4)
== END ==
LOC: NPA 11:00
DX: Z02.89 Encounter for other administrative examinations (principal)
CPT/HCPCS: 36415; 80048; 85025

== ENCOUNTER → 2017-10-18 | Outpatient (CLI) | payer OTHER ==
[2017-10-18 17:43] LABS: BASOPHILS % 0.3 % (0.0-1.0); EOSINOPHILS % 0.3 % (0.0-6.0); HEMOGLOBIN 9.2 g/dL (14.0-18.0); LYMPHOCYTES # (AUTO) 1.3 (1.0-3.2); LYMPHOCYTES % 11.9 % (18.0-39.1); MEAN CORPUSCULAR HEMOGLOBIN 27.1 pg (28-32); MEAN CORPUSCULAR HGB CONC 30.7 g/dL (31-35); MEAN CORPUSCULAR VOLUME 88.5 fL (81-99); MONOCYTES # (AUTO) 0.9 (0.2-0.8); MONOCYTES % 8.5 % (4.4-11.3); NEUTROPHILS # (AUTO) 8.6 (2.1-6.9); NEUTROPHILS % 78.6 % (38.7-80.0); PLATELET COUNT 353 x10e3/uL (140-360); RED BLOOD COUNT 3.39 x10e6/uL (4.3-5.7)
== END ==
LOC: NPA 11:30
DX: Z02.89 Encounter for other administrative examinations (principal)
CPT/HCPCS: 36415; 85025

== ENCOUNTER → 2017-10-19 | Outpatient (CLI) | payer OTHER ==
[2017-10-19 17:09] LABS: ANION GAP 13.5 mmol/L (8-16); CALCIUM 9.7 mg/dL (8.4-10.2); CREATININE, SERUM 2.18 mg/dL (0.72-1.25); POTASSIUM 4.5 mmol/L (3.5-5.1)
[2017-10-19 17:10] LABS: BASOPHILS # (AUTO) 0.1 (0.0-0.1); BASOPHILS % 1.4 % (0.0-1.0); EOSINOPHILS # (AUTO) 0.1 (0.0-0.4); EOSINOPHILS % 1.2 % (0.0-6.0); HEMATOCRIT 36.1 % (38.2-49.6); HEMOGLOBIN 11.3 g/dL (14.0-18.0); LYMPHOCYTES # (AUTO) 0.2 (1.0-3.2); LYMPHOCYTES % 5.1 % (18.0-39.1); MEAN CORPUSCULAR HGB CONC 31.3 g/dL (31-35); MEAN CORPUSCULAR VOLUME 89.6 fL (81-99); MONOCYTES # (AUTO) 0.6 (0.2-0.8); MONOCYTES % 14.5 % (4.4-11.3); NEUTROPHILS # (AUTO) 3.1 (2.1-6.9); NEUTROPHILS % 71.3 % (38.7-80.0); PLATELET COUNT 101 x10e3/uL (140-360); RED BLOOD COUNT 4.03 x10e6/uL (4.3-5.7); RED CELL DISTRIBUTION WIDTH 18.4 % (11.7-14.4)
== END ==
LOC: NPA 14:56
DX: Z02.89 Encounter for other administrative examinations (principal)
CPT/HCPCS: 36415; 80048; 85025